=== PATIENT | female | born 1965 | race Caucasian/White ===

== ENCOUNTER 2018-07-09 11:17 | Inpatient (IN) | payer BC, OTHER ==
[2018-07-09 12:10] LABS: INR 1.01 (0.77-1.02)
[2018-07-09 12:16] LABS: Hematocrit 41 % (35-47); Hemoglobin 14.1 g/dl (12.0-16.0); Mean Corpuscular HGB Conc 34 g/dl (31-36); Mean Corpuscular Hemoglobin 32 pg (27-31); Mean Corpuscular Volume 92 fL (80-97); Red Blood Count 4.48 10^6/ul (4.00-5.40); Red Cell Distribution Width 14 % (10.5-15); White Blood Count 9.2 10^3/ul (3.5-10.8)
[2018-07-09 12:26] LABS: EGFR Non-African American 90.2 (>60)
[2018-07-09 12:48] LABS: ABS Basophils 0.1 10^3/ul (0-0.2); ABS Eosinophils 0 10^3/ul (0-0.6); ABS Lymphocytes 1.5 10^3/ul (1.0-4.8); ABS Monocytes 0.4 10^3/ul (0-0.8); ABS Neutrophils 7.2 10^3/ul (1.5-7.7); ABS Nucleated RBC 0 10^3/ul; Eosinophil % 0.4 % (0-6); Lymphocyte % 16.2 % (25-47); Mean Platelet Volume 7.5 um3 (7.4-10.4); Nucleated Red Blood Cells % 0.1; Platelet Count 216 10^3/ul (150-450)
--- NOTE | 2018-07-09 13:46 | ED ---
Abdominal Pain/Female - HPI Summary HPI Summary: Pt is a 53 y/o female who presents to the ED c/o abdominal pain for 2 days. She states the pain is located in her lower abdomen, and fluctuates in severity but is constant. It is non-radiating and feels like pressure. Pt also c/o decreased appetite. For the past few months shes been having bowel incontinence with soft stool several times a day. Pt thinks she might have IBS, since she has a FHx of this. She a/so c/o orange urine, chills, and nausea. She denies any constipation, CP, numbness, tingling, fever, vomiting, or hematuria. Hx hiatal hernia, lactose intolerance, and diverticulosis, but no hx abdominal surgery. FHx lactose intolerance, diverticulosis, and IBS. - History of Current Complaint Chief Complaint: EDAbdPain Stated Complaint: ABD PAIN Time Seen by Provider: 07/09/18 13:16 Hx Obtained From: Patient Onset/Duration: Gradual Onset, Lasting Days - 2, Still Present Timing: Constant Severity Currently: Moderate Pain Intensity: 6 Pain Scale Used: 0-10 Numeric Location: Discrete At: RLQ, Discrete At: LLQ, Suprapubic Radiates: No Character: Other: - Pressure Alleviating Factor(s): Nothing Associated Signs and Symptoms: Positive: Decreased Appetite, Nausea, Other: - Bowel incontinence. Negative: Fever, Chest Pain, Constipation, Urinary Symptoms , Vomiting Allergies/Adverse Reactions: Allergies Allergy/AdvReac Type Severity Reaction Status Date / Time No Known Allergies Allergy Verified 07/09/18 11:21 Home Medications: Home Medications Acetaminophen [Acetaminophen Extra Strength] 1,000 mg PO BID PRN 07/09/18 [ History Confirmed 07/09/18] Citalopram TAB* [CeleXA TAB*] 40 mg PO DAILY 07/09/18 [History Confirmed ] Ibuprofen TAB* [Advil TAB*] 400 mg PO Q6H PRN 07/09/18 [History Confirmed ] busPIRone TAB* [Buspar TAB *] 15 mg PO TID 07/09/18 [History Confirmed 07/09/18] lamoTRIgine TAB(*) [LaMICtal TAB(*)] 200 mg PO DAILY 07/09/18 [History Confirmed 07/09/18] traZODone TAB* [Desyrel TAB*] 50 mg PO BEDTIME 07/09/18 [History Confirmed 07/09] PMH/Surg Hx/FS Hx/Imm Hx GI History: Reports: Hx Diverticulosis, Hx Hiatal Hernia Musculoskeletal History: Reports: Hx Back Problems - Herniated discs - Cancer History Hx Chemotherapy: No Hx Radiation Therapy: No Infectious Disease History: No Infectious Disease History: Denies: Traveled Outside the [place] in Last 30 Days - Family History Known Family History: Positive: Other - lactose intolerance, diverticulosis, and IBS - Social History Alcohol Use: None Hx Substance Use: Yes Substance Use Type: Reports: Heroin 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 Negative: Fever Negative: Chest Pain Positive: Abdominal Pain, Nausea, Other - Bowel incontinence, soft stool, NEGATIVE: constipation. Negative: Vomiting Positive: other - [place] urine. Negative: hematuria Negative: Paresthesia, Numbness All Other Systems Reviewed And Are Negative: Yes Physical Exam - Summary Physical Exam Summary: Appearance: Well appearing, no pain distress Skin: warm, dry, reflects adequate perfusion Head/face: normal Eyes: EOMI, LEVI ENT: mucous membranes moist Neck: supple, non-tender Respiratory: CTA, breath sounds present Cardiovascular: RRR, pulses symmetrical, no LE edema Abdomen: soft, diffuse tenderness to RLQ, LLQ, and suprapubic region, RLQ the worst, mildly diminished bowel sounds Bowel Sounds: present Musculoskeletal: normal, strength/ROM intact Neuro: normal, sensory motor intact, A&Ox3 Triage Information Reviewed: Yes Vital Signs On Initial Exam: Initial Vitals Temp Pulse Resp BP Pulse Ox 98.2 F 77 16 117/82 97 07/09/18 11:21 07/09/18 11:21 07/09/18 11:21 07/09/18 11:21 07/09/18 11:21 Vital Signs Reviewed: Yes Diagnostics - Vital Signs Vital Signs Temp Pulse Resp BP Pulse Ox 07/09/18 13:15 68 130/94 96 07/09/18 13:14 72 96 07/09/18 11:21 98.2 F 77 16 117/82 97 - Laboratory Lab Results: Lab Results 07/09/18 07/09/18 07/09/18 Range/Units 11:45 11:45 11:45 WBC 9.2 (3.5-10.8) 10^3/ul RBC 4.48 (4.00-5.40) 10^6/ul Hgb 14.1 (12.0-16.0) g/dl Hct 41 (35-47) % MCV 92 (80-97) fL MCH 32 H (27-31) pg MCHC 34 (31-36) g/dl RDW 14 (10.5-15) % Plt Count 216 (150-450) 10^3/ul MPV 7.5 (7.4-10.4) um3 Neut % (Auto) 78.2 (38-83) % Lymph % (Auto) 16.2 L (25-47) % Webb % (Auto) 4.6 (0-7) % Eos % (Auto) 0.4 (0-6) % Baso % (Auto) 0.6 (0-2) % Absolute Neuts (auto) 7.2 (1.5-7.7) 10^3/ul Absolute Lymphs (auto) 1.5 (1.0-4.8) 10^3/ul Absolute Monos (auto) 0.4 (0-0.8) 10^3/ul Absolute Eos (auto) 0 (0-0.6) 10^3/ul Absolute Basos (auto) 0.1 (0-0.2) 10^3/ul Absolute Nucleated RBC 0 10^3/ul Nucleated RBC % 0.1 INR (Anticoag Therapy) 1.01 (0.77-1.02) Sodium 137 (135-145) mmol/L Potassium 4.4 (3.5-5.0) mmol/L Chloride 105 (101-111) mmol/L Carbon Dioxide 23 (22-32) mmol/L Anion Gap 9 (2-11) mmol/L BUN 11 (6-24) mg/dL Creatinine 0.68 (0.51-0.95) mg/dL Est GFR ( Amer) 109.1 (>60) Est GFR (Non-Af Amer) 90.2 (>60) BUN/Creatinine Ratio 16.2 (8-20) Glucose 107 H (70-100) mg/dL Lactic Acid (0.5-2.0) mmol/L Calcium 9.6 (8.6-10.3) mg/dL Total Bilirubin 0.70 (0.2-1.0) mg/dL AST 15 (13-39) U/L ALT 13 (7-52) U/L Alkaline Phosphatase 83 (34-104) U/L Troponin I 0.00 (<0.04) ng/mL C-Reactive Protein 150.01 H (<8.01) mg/L Total Protein 7.5 (6.4-8.9) g/dL Albumin 4.5 (3.2-5.2) g/dL Globulin 3.0 (2-4) g/dL Albumin/Globulin Ratio 1.5 (1-3) Lipase 14 (11.0-82.0) U/L 07/09/18 Range/Units 11:45 WBC (3.5-10.8) 10^3/ul RBC (4.00-5.40) 10^6/ul Hgb (12.0-16.0) g/dl Hct (35-47) % MCV (80-97) fL MCH (27-31) pg MCHC (31-36) g/dl RDW (10.5-15) % Plt Count (150-450) 10^3/ul MPV (7.4-10.4) um3 Neut % (Auto) (38-83) % Lymph % (Auto) (25-47) % Webb % (Auto) (0-7) % Eos % (Auto) (0-6) % Baso % (Auto) (0-2) % Absolute Neuts (auto) (1.5-7.7) 10^3/ul Absolute Lymphs (auto) (1.0-4.8) 10^3/ul Absolute Monos (auto) (0-0.8) 10^3/ul Absolute Eos (auto) (0-0.6) 10^3/ul Absolute Basos (auto) (0-0.2) 10^3/ul Absolute Nucleated RBC 10^3/ul Nucleated RBC % INR (Anticoag Therapy) (0.77-1.02) Sodium (135-145) mmol/L Potassium (3.5-5.0) mmol/L Chloride (101-111) mmol/L Carbon Dioxide (22-32) mmol/L Anion Gap (2-11) mmol/L BUN (6-24) mg/dL Creatinine (0.51-0.95) mg/dL Est GFR ( Amer) (>60) Est GFR (Non-Af Amer) (>60) BUN/Creatinine Ratio (8-20) Glucose (70-100) mg/dL Lactic Acid 0.5 (0.5-2.0) mmol/L Calcium (8.6-10.3) mg/dL Total Bilirubin (0.2-1.0) mg/dL AST (13-39) U/L ALT (7-52) U/L Alkaline Phosphatase (34-104) U/L Troponin I (<0.04) ng/mL C-Reactive Protein (<8.01) mg/L Total Protein (6.4-8.9) g/dL Albumin (3.2-5.2) g/dL Globulin (2-4) g/dL Albumin/Globulin Ratio (1-3) Lipase (11.0-82.0) U/L Result Diagrams: 07/09/18 11:45 07/09/18 11:45 Lab Statement: Any lab studies that have been ordered have been reviewed, and results considered in the medical decision making process. - CT CT A/P CT Interpretation: Positive (See Comments) - 1. ACUTE APPENDICITIS WITHOUT LOCULATED FLUID COLLECTION TO SUGGEST ABSCESS. 2. PROMINENCE OF THE VASCULATURE ALONG THE BROAD LIGAMENTS BILATERALLY, NONSPECIFIC THIS CAN BE ASSOCIATED WITH PELVIC CONGESTION SYNDROME IN THE CORRECT CLINICAL SETTING. 3. FATTY INFILTRATION OF THE LIVER WITH BORDERLINE HEPATOMEGALY. ED physician reviewed radiology report. CT Interpretation Completed By: Radiologist Abdominal Pain Fem Course/Dx - Course Course Of Treatment: 53-year-old female with lower abdominal pain M bilateral lower quadrants. She is ill-appearing with significant tenderness mostly in the right lower quadrant. CT was performed which is positive for appendicitis. CRP is grossly elevated. Discussed case with surgery who will see the patient in the ER. They would like antibiotics given now. Plan for OR. - Diagnoses Differential Diagnosis: Positive: Appendicitis, Constipation, Diverticulitis, Ovarian Cyst, Pancreatitis Provider Diagnoses: Appendicitis - Provider Notifications Discussed Care Of Patient With: Panchito Thornton Time Discussed With Above Provider: 15:00 Instructed by Provider To: Admit As Inpatient - Dr. Thornton accepts pt for admission. Discharge - Sign-Out/Discharge Documenting (check all that apply): Patient Departure - Admit - Discharge Plan Condition: Stable Disposition: ADMITTED TO [facility] Referrals: Anny Turner PA [Primary Care Provider] - - Billing Disposition and Condition Condition: STABLE Disposition: Admitted to [facility] - Attestation Statements Document Initiated by Naeeme: Yes Documenting Scribe: Evie Milton Provider For Whom Scribe is Documenting (Include Credential): Blas Melton MD Scribe Attestation: Evie Calvillo, scribed for Blas Melton MD on 07/09/18 at 1541. Scribe Documentation Reviewed: Yes Provider Attestation: The documentation as recorded by the Evie rodgers accurately reflects the service I personally performed and the decisions made by Blas riggs MD
[2018-07-09] MEDS ORDERED: Iohexol 300* (CONTRAST) 10 ML SDV IV ONE (14:33)
--- NOTE | 2018-07-09 14:48 | RAD ---
CLINICAL HISTORY: lisa lower quad pain COMPARISON: None TECHNIQUE: Multiple contiguous axial CT scans were obtained of the abdomen and pelvis after the administration of intravenous contrast. Coronal and sagittal multiplanar reformations are submitted for review. Oral contrast was administered. Delayed images were obtained through the abdomen. FINDINGS: LUNG BASES: The lung bases are clear. LIVER: The liver is diffusely low in attenuation compared to the spleen. There are no focal hepatic parenchymal masses. The liver measures 18.2 cm in long axis BILE DUCTS: There is no intrahepatic or extrahepatic biliary dilatation. GALLBLADDER: The gallbladder is normal, without pericholecystic inflammatory change. PANCREAS: The pancreas is normal, without mass or ductal dilatation. SPLEEN: Normal in size and appearance. UPPER GI TRACT: Evaluation of the gastrointestinal tract is limited by incomplete gastric distention. The upper GI tract is unremarkable. SMALL BOWEL AND MESENTERY: The small bowel is normal in contour, course, and caliber. There is no obstruction or dilatation. COLON: The colon is normal in contour, course, caliber. There is no pericolonic inflammatory change. There is a tubular vermiform, viscus that is blind-ending and originates from the cecum consistent with the appendix. This is dilated measuring up to 1.2 centers in diameter. There is stranding of the periappendiceal fat. There is no loculated fluid collection to suggest abscess. ADRENALS: Normal bilaterally. KIDNEYS: The kidneys are normal in shape, size, contour, and axis. There is no hydronephrosis or nephrolithiasis. BLADDER: The bladder is smooth in contour. PELVIC ORGANS: There is prominence of the vasculature along the broad ligaments bilaterally, with mild enlargement of the left gonadal vein.. AORTA: The aorta is normal. IVC: Unremarkable LYMPH NODES: There is no lymphadenopathy by size criteria. ABDOMINAL WALL: There is no evidence for abdominal wall hernia. BONES AND SOFT TISSUES: Degenerative changes are noted. OTHER: None IMPRESSION: 1. ACUTE APPENDICITIS WITHOUT LOCULATED FLUID COLLECTION TO SUGGEST ABSCESS. 2. PROMINENCE OF THE VASCULATURE ALONG THE BROAD LIGAMENTS BILATERALLY, NONSPECIFIC THIS CAN BE ASSOCIATED WITH PELVIC CONGESTION SYNDROME IN THE CORRECT CLINICAL SETTING. 3. FATTY INFILTRATION OF THE LIVER WITH BORDERLINE HEPATOMEGALY.
[2018-07-09] MEDS ORDERED: Piperacillin/Tazobac ADVAN(*) 3.375 GM in NS 0.9% 100 ML* 100 ML IVPB ONE (14:56)
[2018-07-09] MEDS ORDERED: NS 0.9% 1000 ML*IV.FLUID IV ONE (15:02)
[2018-07-09] MEDS ORDERED: Buffered Lidocaine 0.9% SYRIN* 5 ML/SYR SYRINGE INTRADERM ONE (16:44)
[2018-07-09] MEDS ORDERED: Dexamethasone TAB* 4 MG PO ONE (16:44)
[2018-07-09] MEDS ORDERED: Famotidine IV* 10 MG/ML 2 ML (20 mg) IV ONE (16:44)
[2018-07-09] MEDS ORDERED: Dexamethasone TAB* 4 MG ONE (17:22)
[2018-07-09] MEDS ORDERED: Lidocaine 2% PF * 5 ML VIAL ONE (17:22)
[2018-07-09] MEDS ORDERED: fentaNYL* 50 MCG/ML 5 ML VIAL (250 MCG VIAL) ONE (17:22)
[2018-07-09] MEDS ORDERED: Midazolam* 1 MG/ML 5 ML VIAL (5 MG) ONE (17:22)
[2018-07-09] MEDS ORDERED: Famotidine IV* 10 MG/ML 2 ML (20 mg) ONE (17:22)
[2018-07-09] MEDS ORDERED: Propofol* 10 MG/ML 20 ML BTL IV PUSH ONE (17:23)
[2018-07-09] MEDS ORDERED: Rocuronium* 10 MG/ML VIAL ONE ×2 (17:23→19:04)
[2018-07-09] MEDS ORDERED: Bupivacaine 0.25% W/EPI* 10 ML SDV ONE ×2 (18:03)
[2018-07-09] MEDS ORDERED: ceFAZolin 2 GM PREMIX in ORs 2 GM/50 ML BAG IVPB ONE (18:45)
[2018-07-09] MEDS ORDERED: Ondansetron INJ* 2 MG/ML VIAL ONE (19:18)
[2018-07-09] MEDS ORDERED: Glycopyrrolate IV* 0.2 MG/ML 1 ML VIAL ONE (19:19)
[2018-07-09] MEDS ORDERED: Neostigmine Methylsulfate* 1 MG/ML 10 ML VIAL (1 mg/ml) ONE (19:19)
[2018-07-09] MEDS ORDERED: Naloxone* 0.4 MG/ML 1 ML VIAL IV PRN (19:32)
[2018-07-09] MEDS ORDERED: DiMENhydriNATE IV* 50 MG/ML VIAL IV PUSH PRN (19:32)
[2018-07-09] MEDS ORDERED: Ketorolac INJ* 30 MG/ML 1 ML VIAL IV PRN (19:32)
[2018-07-09] MEDS ORDERED: PROCHLORPERAZINE INJ 5 MG/ML 2 ML VIAL IV PRN (19:32)
[2018-07-09] MEDS ORDERED: Morphine VIAL* 4 MG/ML VIAL (1 ml vial) IV PRN ×2 (19:32→21:50)
[2018-07-09] MEDS ORDERED: Acetaminophen TAB* 325 MG PO PRN ×2 (19:32→20:07)
[2018-07-09] MEDS ORDERED: HYDROcodone/ACETAMIN 5-325 MG* 1 TAB PO PRN (19:32)
[2018-07-09] MEDS ORDERED: fentaNYL* 50 MCG/ML 2 ML VIAL (100 MCG VIAL) IV PRN (19:32)
--- NOTE | 2018-07-09 20:04 | BRIEFOPN ---
Brief Operative Note - Surgery Procedures: Procedures OPERATIVE REPORT PRE-OP: Acute appendicitis POST-OP: Acute appendicitis PROCEDURE: Laparoscopic appendectomy SURGEON: MD Hillary ANESTHESIA:Local with General, Dr. Cardenas ASST:none IVF:1 liter of crystalloid EBL: min SPECIMEN:appendix DRAIN: none WOUND CLASS:3 COMPLICATIONS: none TO PACU
[2018-07-09] MEDS ORDERED: Ondansetron INJ* 2 MG/ML VIAL IV PRN (20:07)
[2018-07-09] MEDS ORDERED: Ketorolac INJ* 30 MG/ML 1 ML VIAL IV PUSH PRN (20:07)
[2018-07-09] MEDS ORDERED: Morphine INJ* 4 MG/ML 1 ML SYRINGE (NEW SYRINGE VERSION) IV PRN (20:07)
[2018-07-09] MEDS ORDERED: Ketorolac INJ* 30 MG/ML 1 ML VIAL ONE (20:08)
[2018-07-09] MEDS ORDERED: fentaNYL* 50 MCG/ML 2 ML VIAL (100 MCG VIAL) ONE (20:08)
[2018-07-09] MEDS ORDERED: traZODone TAB* 50 MG TAB PO SCH (21:00)
[2018-07-09] MEDS: NS 0.9% 1000 ML* 1,000 ML IV SCH (21:16)
[2018-07-09] MEDS ORDERED: lamoTRIgine TAB(*) 100 MG PO SCH (22:00)
[2018-07-09] MEDS: Piperacillin/Tazobac ADVAN(*) 3.375 GM in NS 0.9% 100 ML* 100 ML IVPB SCH (22:15)
--- NOTE | 2018-07-09 22:15 | HP ---
CC: [facility]; MILLI Izquierdo, Bc * HISTORY AND PHYSICAL: DATE OF ADMISSION: 07/09/18 PRIMARY CARE PROVIDER: MILLI Izquierdo REASON FOR ADMISSION: Acute appendicitis. HISTORY OF PRESENT ILLNESS: Elena Walker is a healthy 53-year-old woman, who developed some generalized abdominal discomfort along with anorexia on Monday. She felt ill. On Monday, the pain worsened, it became more localized in the right lower quadrant and progressed into today. She denied any fevers, chills, or diarrhea. She has been anorexic and not had anything to eat or drink since last night. In the emergency room, she was noted to be afebrile. She had a normal white blood cell count and was noted to have tenderness in the right lower quadrant. A CT scan of the abdomen and pelvis showed a thickened, dilated appendix up to 1.2 cm with periappendiceal inflammation all consistent with acute appendicitis. There were no other acute findings. There is no evidence of extraluminal air, fluid, or other findings to suggest an abscess and/or perforation. Surgical consultation was obtained. PAST MEDICAL HISTORY: Depression. PAST SURGICAL HISTORY: Low back discomfort. MEDICATIONS: Include: 1. Trazodone 50 mg q.h.s. 2. Advil p.r.n. 3. Lamictal 200 mg p.o. daily. 4. BuSpar 15 mg t.i.d. 5. Celexa 40 mg daily. ALLERGIES: She has no known drug allergies. SOCIAL HISTORY: She works at [employer]. She quit smoking several years ago. She does not use alcohol. REVIEW OF SYSTEMS: Cerebrovascular: No dizziness or visual disturbances. Cardiovascular: No chest pain, shortness of breath, or coronary artery disease. Pulmonary: No wheezing, hemoptysis, or asthma. GI: She has some chronic problems with intermittent diarrhea and constipation, different from the above described symptoms. PHYSICAL EXAMINATION GENERAL: She is a well-developed, well-nourished female with normal attention to grooming. She appears to be in no apparent distress. VITAL SIGNS: She is afebrile, pulse 85, blood pressure 118/81. HEENT: Oral mucosa is slightly dry. LUNGS: Clear to auscultation with normal respiratory effort. HEART: Regular rate and rhythm without murmurs, rubs, or gallops. ABDOMEN: Soft and nondistended. No prior surgical incisions or hernias noted. She has tenderness in the right lower quadrant with some voluntary guarding and localized rebound. There is no generalized abdominal discomfort or peritoneal irritation. DIAGNOSTIC STUDIES/LAB DATA: Remainder of her laboratory values included a lactic acid, which was normal. She has a C-reactive protein of 150. Otherwise , her electrolytes, liver transaminases and lipase are all within normal limits. Hemoglobin was 14.1. I did review the CT scan of the abdomen and pelvis. IMPRESSION: Acute appendicitis. PLAN: I recommend we proceed today with a laparoscopic appendectomy. We discussed options also of nonoperative management with IV antibiotics, but this is not the recommended course of treatment here in the [facility] and we will proceed with surgery today. The procedure was discussed with her, and the risks of, but not limited to, of bleeding, infection, intraabdominal abscess formation, injury to peritoneal and retroperitoneal structures, possibility of an open procedure, possibility of other indicated procedures depending on findings at laparoscopy, the possibility it could be an open appendectomy were discussed. In addition, the risk of general anesthesia, deep vein thrombosis, and blood clots were explained. We also discussed possible hospital stay, recovery times , and time off from work in a general manner. We will keep her n.p.o., start IV antibiotics and IV fluids, and schedule this here in the operating this evening. [id number]/[facility] #: [id number] JENN
[2018-07-09] MEDS: busPIRone TAB* 15 MG PO SCH (22:17)
[2018-07-09] MEDS: oxyCODONE/Acetamin 5/325 MG* TAB PO PRN (22:18)
[2018-07-10] MEDS: Piperacillin/Tazobac ADVAN(*) 3.375 GM in NS 0.9% 100 ML* 100 ML IVPB SCH (06:08)
[2018-07-10] MEDS: NS 0.9% 1000 ML* 1,000 ML IV SCH (06:13)
--- NOTE | 2018-07-10 07:48 | PN ---
Progress Note - Progress Note Date of Service: 07/10/18 SOAP: Subjective: Doing well Ambulated to bathroom last night Pain controlled Objective: Temp Pulse Resp BP Pulse Ox 97.5 F 66 18 108/70 97 07/10/18 03:19 07/10/18 03:19 07/10/18 03:19 07/10/18 03:19 07/10/18 03:19 Intake & Output 07/08/18 07/09/18 07/10/18 07/11/18 06:59 06:59 06:59 06:59 Intake Total 2996 Output Total 600 Balance 2396 Weight 146 lb Intake: IV Fluids 2475 LR 1375 NS (0.9%) 950 NS 50ML, Cefazolin 2G 50 IVPB 101 ABX - ZOSYN 101 Oral 420 Output: Urine 600 Other: # Bowel Movements 0 PEX: Comfortable Lungs are clear Abd is soft and non-distended. Incisions CDI. Bowel sounds are present. Assessment: POD#1 s/p lap appy for acute appendicitis--doing well Plan: D/C home Rx for pain No further abx Office follow up Instructions given.
[2018-07-10 07:55] VITALS: BP 104/69
[2018-07-10] MEDS: oxyCODONE/Acetamin 5/325 MG* TAB PO PRN (08:51)
[2018-07-10] MEDS: busPIRone TAB* 15 MG PO SCH (08:52)
[2018-07-10] MEDS ORDERED: Citalopram TAB* 40 MG PO SCH (09:00)
[2018-07-10] MEDS ORDERED: Pneumococcal *Vac Polyvalent 0.5 ML VIAL IM ONE (09:00)
--- NOTE | 2018-07-10 10:38 | OP ---
DATE OF OPERATION: 07/09/18 - ROOM #347 DATE OF : 63 SURGEON: Panchito Thornton MD ELECTRONIC EQUIPMENT REPAIRER: None. ANESTHESIOLOGIST: Dr. Ye. ANESTHESIA: General with local. PRE-OP DIAGNOSIS: Acute appendicitis. POST-OP DIAGNOSIS: Acute suppurative appendicitis. OPERATIVE PROCEDURE: Laparoscopic appendectomy. IV FLUIDS: 1 liter of crystalloids. ESTIMATED BLOOD LOSS: Minimal. SPECIMENS: Appendix. DRAINS: None. COMPLICATIONS: None. FINDINGS: Acute suppurative appendicitis without evidence of gangrene, perforation, or abscess. DESCRIPTION OF PROCEDURE: Written and informed consent was obtained, the patient was given preoperative antibiotics and the abdomen was marked with indelible ink. She was taken to the operating room and placed in a supine position. Sequential compression devices and a warming blanket were applied. General anesthesia was administered and the abdomen was prepped and draped in the usual sterile fashion. Time-out verification was completed. A small transverse incision was made just above the umbilicus at the midline, the peritoneal cavity was entered under direct vision and a 12-mm blunt port was inserted. The abdomen was insufflated to 15 mmHg under direct vision and a 5-mm port was placed in the left lower abdominal wall and a second 5-mm port was placed in a suprapubic position under direct vision. There was no evidence of a purulent peritonitis or significant fluid in the pelvis. The cecum was adherent to the anterior abdominal wall with some flimsy fibrinous exudate and this was retracted medially to expose the appendix, which was suppuratively inflamed, markedly edematous, but no evidence of gangrene, perforation, or abscess. The terminal ileum and cecum as well as the right colon appeared to be normal. The mesentery of the appendix was then divided sequentially from distal to its proximal base using the LigaSure device. Base of the appendix and cecum were normal and I used a hampton load of a 45 mm EndoGIA stapler to amputate the appendix. This was placed in an EndoCatch bag and brought out through the umbilical incision. The staple line was intact and hemostasis was assured. I irrigated the right lower quadrant and pelvis. No other abnormalities were noted. Two 5-mm ports were removed under direct vision. The umbilical fascia was closed with interrupted 0-Vicryl suture. The skin at all three incisions was approximated with subcuticular 4-0 Vicryl suture. Steri-strips were applied. The patient tolerated the procedure well and was taken to the recovery room in stable condition. [id number]/[facility] #: [id number] JENN
== END 2018-07-10 11:30 | disposition home or self-care (01) | DRG 225 ==
LOC: ED 11:17 → SDS 17:42 → SSU 21:31
PROVIDERS: ADMIT Surgery; ATTEND Surgery
PROC: 0DTJ4ZZ Resection of Appendix, Percutaneous Endoscopic Approach (ICD-10-PCS; principal; 2018-07-09 18:29)
DX: K35.890 Other acute appendicitis without perforation or gangrene (principal); F33.9 Major depressive disorder, recurrent, unspecified; Z79.1 Long term (current) use of non-steroidal anti-inflammatories (NSAID); Z79.899 Other long term (current) drug therapy; Z87.891 Personal history of nicotine dependence
CPT/HCPCS: 36415; 74177; 80053; 83605; 83690; 84484; 85025; 85610; 86140; 88304; 90686; 90732; 93005; 99284; A9270-GY; C1776; J0690; J1885; J2250; J2405; J2543; J2704; J2710; J3010; J8540